=== PATIENT | male | born 1985 | race American Indian/Alaskan Native ===

== ENCOUNTER 2022-02-02 23:18 | Emergency (ER) | payer SELFPAY ==
--- NOTE | 2022-02-03 00:27 | Emergency Department Report ---
- General Chief Complaint: Wound/Laceration Stated Complaint: GASH ON RIGHT ARM Time Seen by Provider: 02/03/22 00:18 Source: patient Mode of arrival: Ambulatory Limitations: No Limitations - History of Present Illness Initial Comments: 36-year-old [place] male presents emergency department for evaluation of laceration sustained to his left forearm after accidentally coming in contact with broken glass just prior to arrival. Pain is dull and throbbing a day have some bleeding which was controlled with bandage. -: Sudden Extremity Location: Left: Forearm Place: home Patient Tetanus UTD: No Context: accidental Associated Symptoms: pain Treatments Prior to Arrival: bandage - Related Data Previous Rx's Medication Instructions Recorded Last Taken Type Chlorhexidine Gluconate [Hibiclens] 10 ml TP BID #240 liquid 02/03/22 Unknown Rx cephALEXin [Keflex] 500 mg PO Q6HR #40 capsule 02/03/22 Unknown Rx Allergies Allergy/AdvReac Type Severity Reaction Status Date / Time No Known Allergies Allergy Verified 02/03/22 02:10 ED Review of Systems ROS: Stated complaint: GASH ON RIGHT ARM Other details as noted in HPI Comment: All other systems reviewed and negative ED Past Medical Hx - Medications Home Medications: Home Medications Medication Instructions Recorded Confirmed Last Taken Type Chlorhexidine Gluconate [Hibiclens] 10 ml TP BID #240 liquid 02/03/22 Unknown Rx cephALEXin [Keflex] 500 mg PO Q6HR #40 capsule 02/03/22 Unknown Rx ED Physical Exam - General Limitations: No Limitations General appearance: alert, in no apparent distress - Head Head exam: Present: atraumatic, normocephalic - Eye Eye exam: Present: normal appearance - ENT ENT exam: Present: mucous membranes moist - Neck Neck exam: Present: normal inspection - Respiratory Respiratory exam: Present: normal lung sounds bilaterally. Absent: respiratory distress - Cardiovascular Cardiovascular Exam: Present: regular rate, normal rhythm. Absent: systolic murmur, diastolic murmur, rubs, gallop - GI/Abdominal GI/Abdominal exam: Present: soft, normal bowel sounds - Rectal Rectal exam: Present: deferred - Extremities Exam Extremities exam: Present: normal inspection, tenderness - Expanded Upper Extremity Exam Left Forearm Wrist exam: Present: tenderness, laceration (Flap-like laceration to the upper forearm) - Back Exam Back exam: Present: normal inspection - Neurological Exam Neurological exam: Present: alert, oriented X3 - Psychiatric Psychiatric exam: Present: normal affect, normal mood - Skin Skin exam: Present: warm, dry, intact, normal color. Absent: rash ED Course Vital Signs 02/02/22 23:25 Temperature 98.8 F Pulse Rate 105 H Respiratory 18 Rate Blood Pressure 128/78 O2 Sat by Pulse 88 Oximetry - Laceration /Wound Repair Left Arm Wound Location: upper extremity Wound Length (cm): 10 Wound's Depth, Shape: irregular Betadine Prep?: Yes Anesthesia: 1% Lidocaine Volume Anesthetic (ccs): 5 Wound Debrided: minimal Wound Repaired With: sutures Suture Size/Type: 4:0 Number of Sutures: 18 Critical care attestation.: If time is entered above; I have spent that time in minutes in the direct care of this critically ill patient, excluding procedure time. ED Disposition Clinical Impression: Arm laceration Disposition: 01 HOME / SELF CARE / HOMELESS Is pt being admited?: No Does the pt Need Aspirin: No Condition: Stable Instructions: Laceration Care, Adult, Laceration Care, Adult, [id number] Additional Instructions: To be sure to follow-up with primary care provider to be evaluated for wound healing any signs of infection Prescriptions: Chlorhexidine Gluconate [Hibiclens] 10 ml TP BID #240 liquid cephALEXin [Keflex] 500 mg PO Q6HR #40 capsule Referrals: JAQUELINE NIETO MD [Primary Care Provider] - 3-5 Days
[2022-02-03] MEDS ORDERED: TETANUS,DIPH,PERTUSS(ACELL) VACCINE 0.5 ML SYRINGE IM ONE (03:18)
[2022-02-03] MEDS ORDERED: LIDOCAINE (2%) 20 MG/1 ML VIAL 20 ML MDV INFILTRATI ONE (03:22)
[2022-02-03 05:35] VITALS: BP 154/63
== END 2022-02-03 05:34 | disposition home or self-care (01) ==
LOC: ED 23:18
DX: S51.812A Laceration without foreign body of left forearm, initial encounter (principal); W25.XXXA Contact with sharp glass, initial encounter; Y93.89 Activity, other specified; Y92.89 Other specified places as the place of occurrence of the external cause; Y99.8 Other external cause status
CPT/HCPCS: 12004; 90471; 90715; 99282; J3490